=== PATIENT | female | born 1995 | race Caucasian/White ===

== ENCOUNTER 2021-10-05 21:16 | Emergency (ER) | payer OTHER ==
[~2021-10-05] VITALS: Ht 165.1 cm; Wt 69.0 kg
[2021-10-05] MEDS ORDERED: CYCLOBENZAPRINE 10MG TABLET PO ONE (22:15)
[2021-10-05] MEDS ORDERED: IBUPROFEN 800MG TABLET PO ONE (22:15)
[2021-10-05] MEDS ORDERED: HYDROCODONE/ACETAMINOPHEN 5/325MG TABLET PO ONE (23:45)
[2021-10-06] MEDS ORDERED: HYDR-4001 MT (00:36)
[2021-10-06] MEDS ORDERED: IBUP-2030 MT (00:36)
[2021-10-06 02:04] VITALS: BP 99/62
== END 2021-10-06 02:08 | disposition home or self-care (01) ==
LOC: ER 21:16
DX: S06.891A Other specified intracranial injury with loss of consciousness of 30 minutes or less, initial encounter (principal); S70.11XA Contusion of right thigh, initial encounter; V43.62XA Car passenger injured in collision with other type car in traffic accident, initial encounter; Y93.89 Activity, other specified; Y92.488 Other paved roadways as the place of occurrence of the external cause
CPT/HCPCS: 71045; 72170; 73552; 93005; 99284

== ENCOUNTER 2022-09-11 21:35 | Emergency (ER) | payer OTHER ==
[~2022-09-11] VITALS: Ht 165.1 cm; Wt 63.3 kg
[~2022-09-11 21:35] MED LIST: HYDR-4001 MT; IBUP-2030 MT
[2022-09-12 01:39] LABS: HEMATOCRIT. 38.1 % (36.0-48.0); MEAN CORPUSCULAR HEMOGLOBIN 21.6 pg (28.0-32.0); MEAN CORPUSCULAR VOLUME 68.6 fL (81.0-99.0); PLATELET 361 x1000/uL (130-400); RED BLOOD CELL COUNT 5.56 mill/uL (4.2-5.4); RED CELL DISTRIBUTION WIDTH 20.7 % (11.6-14.6)
[2022-09-12 02:04] LABS: PLATELET ESTIMATE NORMAL
[2022-09-12 02:52] VITALS: BP 107/57
[2022-09-12 03:23] LABS: CLARITY URINE CLEAR (CLEAR); COLOR URINE DARK YELLOW (YELLOW); KETONES URINE 1+ (NEGATIVE); LEUKOCYTE ESTERASE URINE NEGATIVE (NEGATIVE); NITRITE URINE NEGATIVE (NEGATIVE); OCCULT BLOOD URINE NEGATIVE (NEGATIVE); PH URINE 5.5 (4.5-8.0); PROTEIN URINE NEGATIVE (NEGATIVE)
== END 2022-09-12 04:06 | disposition home or self-care (01) ==
LOC: ER 21:35
DX: O26.891 Other specified pregnancy related conditions, first trimester (principal); R10.32 Left lower quadrant pain; Z3A.01 Less than 8 weeks gestation of pregnancy
CPT/HCPCS: 36415; 76801; 81003; 81025; 84702; 85025; 86850; 86900; 99284

== ENCOUNTER 2022-09-30 04:33 | Emergency (ER) | payer OTHER, MEDICAID ==
[~2022-09-30] VITALS: Ht 162.6 cm; Wt 61.8 kg
[2022-09-30 05:21] LABS: CLARITY URINE CLEAR (CLEAR); COLOR URINE DARK YELLOW (YELLOW); KETONES URINE TRACE (NEGATIVE); LEUKOCYTE ESTERASE URINE NEGATIVE (NEGATIVE); NITRITE URINE NEGATIVE (NEGATIVE); OCCULT BLOOD URINE 3+ (NEGATIVE); PH URINE 5.5 (4.5-8.0); PROTEIN URINE 1+ (NEGATIVE); SPECIFIC GRAVITY URINE 1.032 (1.005-1.030)
[2022-09-30 06:01] LABS: BASOPHILS % 0.4 % (0.0-2.0); EOSINOPHILS % 2.3 % (0.0-5.0); HEMATOCRIT. 37.4 % (36.0-48.0); LYMPHOCYTES % 26.3 % (20.0-50.0); MEAN CORPUSCULAR HEMOGLOBIN 22.8 pg (28.0-32.0); MEAN CORPUSCULAR VOLUME 70.6 fL (81.0-99.0); MONOCYTES % 5.9 % (2.0-8.0); NEUTROPHILS % 65.1 % (40.0-76.0); PLATELET 294 x1000/uL (130-400); RED BLOOD CELL COUNT 5.29 mill/uL (4.2-5.4); RED CELL DISTRIBUTION WIDTH 22.4 % (11.6-14.6)
[2022-09-30 06:06] LABS: CHLORIDE 105 mEq/L (98-107)
[2022-09-30 06:29] LABS: HCG SCREEN POSITIVE
[2022-09-30 06:31] LABS: B-HCG QUANTITATIVE 66261 mIU/mL (<3)
[2022-09-30 08:00] VITALS: BP 111/79
== END 2022-09-30 08:54 | disposition home or self-care (01) ==
LOC: ER 04:33
DX: O20.0 Threatened abortion (principal); Z3A.08 8 weeks gestation of pregnancy
CPT/HCPCS: 36415; 76801; 80053; 81003; 81025; 84702; 84703; 85025; 86850; 86900; 86901; 99284; Z7610

== ENCOUNTER 2022-10-07 05:28 | Emergency (ER) | payer OTHER, MEDICAID ==
[~2022-10-07] VITALS: Ht 162.6 cm; Wt 66.0 kg
[2022-10-07 06:05] VITALS: BP 113/73
[2022-10-07] MEDS ORDERED: ACETAMINOPHEN 325MG TABLET PO STA (06:26)
[2022-10-07 06:57] LABS: BASOPHILS % 0.4 % (0.0-2.0); EOSINOPHILS % 0.1 % (0.0-5.0); HEMOGLOBIN. 12.1 g/dL (12.0-16.0); LYMPHOCYTES % 7.9 % (20.0-50.0); MEAN CORPUSCULAR HEMOGLOBIN 22.6 pg (28.0-32.0); MEAN CORPUSCULAR VOLUME 70.9 fL (81.0-99.0); MONOCYTES % 3.7 % (2.0-8.0); NEUTROPHILS % 87.9 % (40.0-76.0); PLATELET 278 x1000/uL (130-400); RED BLOOD CELL COUNT 5.36 mill/uL (4.2-5.4); RED CELL DISTRIBUTION WIDTH 22.5 % (11.6-14.6)
[2022-10-07 07:07] LABS: CHLORIDE 107 mEq/L (98-107)
[2022-10-07 07:21] LABS: HCG SCREEN POSITIVE
[2022-10-07 07:42] LABS: PLATELET ESTIMATE NORMAL
== END 2022-10-07 09:27 | disposition left against medical advice (07) ==
LOC: ER 05:28
DX: O26.891 Other specified pregnancy related conditions, first trimester (principal); Y04.0XXA Assault by unarmed brawl or fight, initial encounter; Y93.89 Activity, other specified; Y92.89 Other specified places as the place of occurrence of the external cause; Y99.8 Other external cause status; Z3A.08 8 weeks gestation of pregnancy
CPT/HCPCS: 36415; 80053; 84703; 85025; 99283

== ENCOUNTER 2022-10-13 15:48 | Emergency (ER) | payer MEDICAID, OTHER ==
[~2022-10-13] VITALS: Ht 162.6 cm; Wt 63.6 kg
[2022-10-13 16:52] LABS: BASOPHILS % 0.6 % (0.0-2.0); EOSINOPHILS % 5.7 % (0.0-5.0); HEMATOCRIT. 35.9 % (36.0-48.0); HEMOGLOBIN. 11.4 g/dL (12.0-16.0); LYMPHOCYTES % 29.9 % (20.0-50.0); MEAN CORPUSCULAR VOLUME 72.5 fL (81.0-99.0); MEAN PLATELET VOLUME 8.2 fl (7.4-10.4); MONOCYTES % 6.9 % (2.0-8.0); NEUTROPHILS % 56.9 % (40.0-76.0); PLATELET 275 x1000/uL (130-400); RED BLOOD CELL COUNT 4.96 mill/uL (4.2-5.4); RED CELL DISTRIBUTION WIDTH 22.8 % (11.6-14.6)
[2022-10-13 16:55] LABS: CHLORIDE 106 mEq/L (98-107)
[2022-10-13 17:05] LABS: HCG SCREEN POSITIVE
[2022-10-13 17:07] LABS: CLARITY URINE CLEAR (CLEAR); COLOR URINE YELLOW (YELLOW); KETONES URINE TRACE (NEGATIVE); LEUKOCYTE ESTERASE URINE TRACE (NEGATIVE); NITRITE URINE NEGATIVE (NEGATIVE); OCCULT BLOOD URINE NEGATIVE (NEGATIVE); PROTEIN URINE NEGATIVE (NEGATIVE); SPECIFIC GRAVITY URINE 1.021 (1.005-1.030); UROBILINOGEN URINE 0.2 E.U./dL (0.2-1.0)
[2022-10-13 17:28] LABS: PLATELET ESTIMATE NORMAL
[2022-10-13 18:27] LABS: B-HCG QUANTITATIVE 70802 mIU/mL (<3)
[2022-10-13 21:07] VITALS: BP 118/76
== END 2022-10-13 21:20 | disposition home or self-care (01) ==
LOC: ER 15:48
DX: O02.1 Missed abortion (principal); Z3A.01 Less than 8 weeks gestation of pregnancy
CPT/HCPCS: 36415; 76801; 80053; 81003; 81025; 84702; 84703; 85025; 86850; 86900; 99284

== ENCOUNTER 2022-10-18 12:06 | Emergency (ER) | payer MEDICAID, OTHER ==
[~2022-10-18] VITALS: Ht 162.6 cm; Wt 64.0 kg
[2022-10-18 12:44] LABS: BASOPHILS % 0.3 % (0.0-2.0); EOSINOPHILS % 3.4 % (0.0-5.0); HEMATOCRIT. 37.1 % (36.0-48.0); HEMOGLOBIN. 12.2 g/dL (12.0-16.0); MEAN CORPUSCULAR HEMOGLOBIN 23.7 pg (28.0-32.0); MEAN PLATELET VOLUME 7.7 fl (7.4-10.4); MONOCYTES % 6.3 % (2.0-8.0); PLATELET 291 x1000/uL (130-400); RED BLOOD CELL COUNT 5.16 mill/uL (4.2-5.4); RED CELL DISTRIBUTION WIDTH 22.8 % (11.6-14.6)
[2022-10-18 12:52] LABS: CHLORIDE 109 mEq/L (98-107)
[2022-10-18] MEDS ORDERED: ACETAMINOPHEN 325MG TABLET PO ONE (13:15)
[2022-10-18 13:28] LABS: PLATELET ESTIMATE NORMAL
[2022-10-18] MEDS ORDERED: FAMOTIDINE 20MG/2ML VIAL IV ONE (13:30)
[2022-10-18] MEDS ORDERED: SODIUM CHLORIDE 0.9% 1,000 ML IV ONE (13:30)
[2022-10-18] MEDS ORDERED: ONDANSETRON HCL 4MG/2ML INJ IV ONE (13:30)
[2022-10-18] MEDS ORDERED: IBUPROFEN 600MG TABLET PO NR (15:00)
[2022-10-18 15:39] LABS: CLARITY URINE CLEAR (CLEAR); COLOR URINE YELLOW (YELLOW); KETONES URINE NEGATIVE (NEGATIVE); LEUKOCYTE ESTERASE URINE NEGATIVE (NEGATIVE); NITRITE URINE NEGATIVE (NEGATIVE); OCCULT BLOOD URINE NEGATIVE (NEGATIVE); PROTEIN URINE NEGATIVE (NEGATIVE); SPECIFIC GRAVITY URINE 1.018 (1.005-1.030); UROBILINOGEN URINE 0.2 E.U./dL (0.2-1.0)
[2022-10-18] MEDS ORDERED: IBUP-2028 MT (15:45)
[2022-10-18 16:01] VITALS: BP 122/60
== END 2022-10-18 16:05 | disposition home or self-care (01) ==
LOC: ER 12:13
DX: O36.4XX0 Maternal care for intrauterine death, not applicable or unspecified (principal); Z3A.08 8 weeks gestation of pregnancy; O99.511 Diseases of the respiratory system complicating pregnancy, first trimester
CPT/HCPCS: 36415; 76801; 76817; 80053; 81003; 81025; 84702; 85025; 86850; 86900; 86901; 96361; 96374; 96375; 99285; J2405; J3490; J7030; Z7610

== ENCOUNTER 2022-11-10 01:46 | Emergency (ER) | payer MEDICAID ==
[~2022-11-10] VITALS: Ht 162.6 cm; Wt 61.0 kg
[~2022-11-10 01:46] MED LIST changes: +IBUP-2028 MT
[2022-11-10 02:05] VITALS: BP 113/70
[2022-11-10 03:22] LABS: HEMOGLOBIN 12.9 g/dL (12.0-16.0); MEAN CORPUSCULAR HEMOGLOBIN 24.1 pg (28.0-32.0); MEAN CORPUSCULAR VOLUME 72.8 fL (81.0-99.0); PLATELET 304 x1000/uL (130-400); RED BLOOD CELL COUNT 5.36 mill/uL (4.2-5.4); RED CELL DISTRIBUTION WIDTH 19.9 % (11.6-14.6)
[2022-11-10 03:27] LABS: CHLORIDE 106 mEq/L (98-107)
== END 2022-11-10 10:58 | disposition left against medical advice (07) ==
LOC: ER 01:46
DX: Z53.21 Procedure and treatment not carried out due to patient leaving prior to being seen by health care provider (principal)
CPT/HCPCS: 36415; 80053; 85027; 86850; 86900; 99281

== ENCOUNTER 2023-01-16 09:29 | Emergency (ER) | payer MEDICAID ==
[~2023-01-16] VITALS: Ht 162.6 cm; Wt 63.0 kg
[2023-01-16 09:53] VITALS: BP 143/70; PULSE 100; RESP 20; TEMP 98.4; O2SAT 100
[2023-01-16 10:07] LABS: BASOPHILS % 0.4 % (0.0-2.0); DIFFERENTIAL COMMENT 0; EOSINOPHILS % 4.2 % (0.0-5.0); HEMATOCRIT. 39.3 % (36.0-48.0); HEMOGLOBIN. 12.1 g/dL (12.0-16.0); LYMPHOCYTES % 32.9 % (20.0-50.0); MEAN CORPUSCULAR HEMOGLOBIN 24.7 pg (28.0-32.0); MEAN CORPUSCULAR HGB CONC 30.9 g/dL (31.0-37.0); MEAN CORPUSCULAR VOLUME 80.1 fL (81.0-99.0); MEAN PLATELET VOLUME 8.1 fl (7.4-10.4); MONOCYTES % 5.3 % (2.0-8.0); NEUTROPHILS % 57.2 % (40.0-76.0); PLATELET 321 x1000/uL (130-400); WHITE BLOOD COUNT 8.1 x1000/uL (4.5-11.0)
[2023-01-16 10:10] LABS: CLARITY URINE CLEAR (CLEAR); COLOR URINE YELLOW (YELLOW); GLUCOSE URINE NEGATIVE (NEGATIVE); KETONES URINE NEGATIVE (NEGATIVE); LEUKOCYTE ESTERASE URINE 3+ (NEGATIVE); NITRITE URINE NEGATIVE (NEGATIVE); OCCULT BLOOD URINE NEGATIVE (NEGATIVE); PROTEIN URINE NEGATIVE (NEGATIVE); SPECIFIC GRAVITY URINE 1.009 (1.005-1.030); UROBILINOGEN URINE 0.2 E.U./dL (0.2-1.0)
[2023-01-16 10:15] LABS: CHLORIDE 107 mEq/L (98-107); INDEX HEMOLYSI 1 (1-3); INDEX ICTERIC 1 (1-4); INDEX LIPEMIC 1 (1-3); POTASSIUM 4.2 mEq/L (3.5-5.1); SODIUM 137 mEq/L (136-145)
[2023-01-16 10:22] LABS: ALANINE AMINOTRANSFERASE 24 IU/L (13-61); ALBUMIN 3.3 g/dL (3.4-5.0); ASPARTATE AMINOTRANSFERASE 18 IU/L (15-37); BILIRUBIN TOTAL 0.2 mg/dL (0.1-1.0); CALCIUM 8.6 mg/dL (8.5-10.1); CARBON DIOXIDE 28 mEq/L (21-32); CREATININE 0.8 mg/dL (0.6-1.3); GLUCOSE 104 mg/dL (70-105); PROTEIN TOTAL 7.3 g/dL (6.0-8.3); UREA NITROGEN BLOOD 14 mg/dL (7-21)
[2023-01-16 10:49] LABS: HCG SCREEN NEGATIVE
[2023-01-16 10:58] LABS: BACTERIA URINE 1+; SQUAMOUS EPITHELIAL CELL URINE 2+ /lpf (RARE/1+)
[2023-01-16 10:59] LABS: RBC URINE 0-2 /hpf (0-2); WBC URINE 0-2 /hpf (0-2)
[2023-01-16] MEDS ORDERED: IBUPROFEN 600MG TABLET PO STA (11:52)
[2023-01-16] MEDS ORDERED: ONDANSETRON 4MG ODT PO STA (11:52)
[2023-01-16] MEDS ORDERED: DICYCLOMINE 10 MG/5 ML ORAL SYR PO STA (11:52)
[2023-01-16] MEDS ORDERED: MAGNESIUM/ALUMINUM HYDROXIDE/SIMETHICONE 30ML UDC PO STA (11:52)
[2023-01-16] MEDS ORDERED: DICYCLOMINE HCL 10MG CAPSULE PO SCH (12:15)
[2023-01-16] MEDS ORDERED: IBUP-2029 MT (14:03)
== END 2023-01-16 14:52 | disposition home or self-care (01) ==
LOC: ER 09:53
DX: K80.50 Calculus of bile duct without cholangitis or cholecystitis without obstruction (principal); J45.909 Unspecified asthma, uncomplicated
CPT/HCPCS: 36415; 76700; 80053; 81003; 81025; 84703; 85025; 99284

== ENCOUNTER 2023-11-07 19:00 | Emergency (ER) | payer SELFPAY ==
[~2023-11-07] VITALS: Ht 160 cm; Wt 70.0 kg
[~2023-11-07 19:00] MED LIST changes: +IBUP-2029 MT
[2023-11-07 19:02] VITALS: BP 127/69; RESP 16; O2SAT 100
[2023-11-07 19:04] VITALS: PULSE 136
[2023-11-07 19:47] LABS: BASOPHILS % 0.5 % (0.0-2.0); EOSINOPHILS % 3.8 % (0.0-5.0); HEMATOCRIT. 40.7 % (36.0-48.0); HEMOGLOBIN. 13.4 g/dL (12.0-16.0); LYMPHOCYTES % 16.6 % (20.0-50.0); MEAN CORPUSCULAR HEMOGLOBIN 26.6 pg (28.0-32.0); MEAN CORPUSCULAR HGB CONC 33.1 g/dL (31.0-37.0); MEAN CORPUSCULAR VOLUME 80.3 fL (81.0-99.0); MEAN PLATELET VOLUME 7.6 fl (7.4-10.4); MONOCYTES % 12.9 % (2.0-8.0); NEUTROPHILS % 66.2 % (40.0-76.0); PLATELET 286 x1000/uL (130-400); RED BLOOD CELL COUNT 5.07 mill/uL (4.2-5.4); RED CELL DISTRIBUTION WIDTH 15.4 % (11.6-14.6); WHITE BLOOD COUNT 4.9 x1000/uL (4.5-11.0)
[2023-11-07 19:59] LABS: CHLORIDE 104 mEq/L (98-107); POTASSIUM 3.9 mEq/L (3.5-5.1); SODIUM 134 mEq/L (136-145)
[2023-11-07 20:00] LABS: CARBON DIOXIDE 24 mEq/L (21-32)
[2023-11-07 20:01] LABS: CALCIUM 9.1 mg/dL (8.7-10.4)
[2023-11-07 20:05] LABS: CREATININE 0.7 mg/dL (0.6-1.0); GLUCOSE 88 mg/dL (70-105)
[2023-11-07 20:06] LABS: UREA NITROGEN BLOOD 7 mg/dL (9-23)
[2023-11-07 20:18] LABS: B-HCG QUANTITATIVE 93726 mIU/mL (<3)
[2023-11-07 21:47] LABS: ALANINE AMINOTRANSFERASE 18 IU/L (10-49); ALBUMIN 4.2 g/dL (3.2-4.8); ASPARTATE AMINOTRANSFERASE 25 IU/L (<34); BILIRUBIN DIRECT 0.2 mg/dL (<=3.0); BILIRUBIN TOTAL 0.6 mg/dL (0.1-1.0); PROTEIN TOTAL 7.3 g/dL (6.0-8.3)
[2023-11-07] MEDS: ACETAMINOPHEN 500MG TABLET PO NR (22:45)
[2023-11-07] MEDS ORDERED: DIPHENHYDRAMINE 50MG/ML VIAL IM NR (22:45)
[2023-11-07] MEDS ORDERED: METOCLOPRAMIDE HCL 10MG/2ML VIAL IM NR (22:45)
[2023-11-07 23:05] VITALS: TEMP 98.7
[2023-11-07] MEDS: ACETAMINOPHEN 500MG TABLET PO ONE (23:05)
[2023-11-07] MEDS: DIPHENHYDRAMINE 50MG/ML VIAL IM ONE (23:05)
[2023-11-07] MEDS: METOCLOPRAMIDE HCL 10MG/2ML VIAL IM ONE (23:05)
== END 2023-11-08 00:10 | disposition home or self-care (01) ==
LOC: ER 19:00
DX: O99.351 Diseases of the nervous system complicating pregnancy, first trimester (principal); G43.909 Migraine, unspecified, not intractable, without status migrainosus; J45.909 Unspecified asthma, uncomplicated; Z3A.10 10 weeks gestation of pregnancy
CPT/HCPCS: 99285; 76801; 80076; 80048; 84702; 85025; 36415; 96372; J1200; J2765

== ENCOUNTER 2024-02-08 09:20 | Emergency (ER) | payer MEDICAID ==
[~2024-02-08] VITALS: Ht 160 cm; Wt 68.0 kg
[2024-02-08 09:38] VITALS: O2SAT 98
[2024-02-08 09:46] LABS: BASOPHILS % 0.4 % (0.0-2.0); EOSINOPHILS % 3.3 % (0.0-5.0); HEMATOCRIT. 31.8 % (36.0-48.0); HEMOGLOBIN. 10.5 g/dL (12.0-16.0); LYMPHOCYTES % 31.1 % (20.0-50.0); MEAN CORPUSCULAR HEMOGLOBIN 26.8 pg (28.0-32.0); MEAN CORPUSCULAR HGB CONC 33.1 g/dL (31.0-37.0); MEAN PLATELET VOLUME 8.2 fl (7.4-10.4); MONOCYTES % 5.8 % (2.0-8.0); NEUTROPHILS % 59.4 % (40.0-76.0); PLATELET 283 x1000/uL (130-400); RED BLOOD CELL COUNT 3.93 mill/uL (4.2-5.4); RED CELL DISTRIBUTION WIDTH 15.1 % (11.6-14.6); WHITE BLOOD COUNT 8.7 x1000/uL (4.5-11.0)
[2024-02-08] MEDS: SODIUM CHLORIDE 0.9% 1,000 ML IV ONE (09:53)
[2024-02-08] MEDS: ACETAMINOPHEN 325MG TABLET PO ONE (09:57)
[2024-02-08 10:00] LABS: CHLORIDE 106 mEq/L (98-107); SODIUM 136 mEq/L (136-145)
[2024-02-08 10:01] LABS: CALCIUM 8.8 mg/dL (8.7-10.4); CARBON DIOXIDE 21 mEq/L (21-32)
[2024-02-08 10:02] LABS: PARTIAL THROMBOPLASTIN TIME 27.3 sec (23.4-31.0); PROTHROMBIN TIME 10.9 sec (9.6-11.0)
[2024-02-08 10:06] LABS: CREATININE 0.6 mg/dL (0.6-1.0); GLUCOSE 94 mg/dL (70-105); UREA NITROGEN BLOOD 9 mg/dL (9-23)
[2024-02-08 10:08] LABS: ALANINE AMINOTRANSFERASE 9 IU/L (10-49); ALBUMIN 3.6 g/dL (3.2-4.8); ASPARTATE AMINOTRANSFERASE 28 IU/L (<34); BILIRUBIN TOTAL 0.3 mg/dL (0.1-1.0); PROTEIN TOTAL 6.4 g/dL (6.0-8.3)
[2024-02-08 11:35] LABS: CLARITY URINE CLOUDY (CLEAR); COLOR URINE YELLOW (YELLOW); GLUCOSE URINE NEGATIVE (NEGATIVE); KETONES URINE NEGATIVE (NEGATIVE); LEUKOCYTE ESTERASE URINE 3+ (NEGATIVE); NITRITE URINE NEGATIVE (NEGATIVE); OCCULT BLOOD URINE NEGATIVE (NEGATIVE); PH URINE 6.5 (4.5-8.0); PROTEIN URINE NEGATIVE (NEGATIVE); SPECIFIC GRAVITY URINE 1.008 (1.005-1.030); UROBILINOGEN URINE 0.2 E.U./dL (0.2-1.0)
[2024-02-08 11:49] LABS: *AMPHETAMINES SCREEN URINE NEGATIVE (NEGATIVE); *BARBITURATES SCREEN URINE NEGATIVE (NEGATIVE); *BENZODIAZEPINES SCREEN URINE NEGATIVE (NEGATIVE); *COCAINE SCREEN URINE NEGATIVE (NEGATIVE)
[2024-02-08 11:50] LABS: CANNABINOID URINE SCREEN NEGATIVE (NEGATIVE); ECSTASY MDMA SCREEN URINE NEGATIVE (NEGATIVE); METHADONE URINE SCREEN NEGATIVE (NEGATIVE); OPIATES URINE SCREEN NEGATIVE (NEGATIVE); PHENCYCLIDINE URINE SCREEN NEGATIVE (NEGATIVE)
[2024-02-08 11:56] LABS: SQUAMOUS EPITHELIAL CELL URINE 1+ /lpf (RARE/1+)
[2024-02-08 11:58] LABS: BACTERIA URINE 1+
[2024-02-08 11:59] LABS: TRICHOMONAS URINE FEW
[2024-02-08 12:00] LABS: WBC URINE 25-50 /hpf (0-2)
[2024-02-08 12:01] LABS: RBC URINE 0-2 /hpf (0-2)
[2024-02-08] MEDS: CEFTRIAXONE 1GM/50ML 50 ML IV ONE (13:00)
[2024-02-08] MEDS: AZITHROMYCIN 500 MG TABLET PO SCH (13:09)
[2024-02-08] MEDS: METRONIDAZOLE 500 MG PREMIX 100 ML IV ONE (13:09)
[2024-02-08] MEDS ORDERED: CEPH500T MT (13:56)
[2024-02-08] MEDS ORDERED: METR-167 MT (13:56)
[2024-02-08] MEDS: ONDANSETRON HCL 4MG/2ML INJ IV ONE (15:00)
[2024-02-08] MEDS: FAMOTIDINE 20MG/2ML VIAL IV ONE (15:01)
[2024-02-08] MEDS: MAGNESIUM/ALUMINUM HYDROXIDE/SIMETHICONE 30ML UDC PO ONE (15:01)
[2024-02-08 15:05] VITALS: BP 109/69; PULSE 80; RESP 18; TEMP 37.00296; O2SAT 99
== END 2024-02-08 15:16 | disposition home or self-care (01) ==
LOC: ER 09:20
DX: O46.8X2 Other antepartum hemorrhage, second trimester (principal); O23.32 Infections of other parts of urinary tract in pregnancy, second trimester; A59.9 Trichomoniasis, unspecified; Z3A.23 23 weeks gestation of pregnancy; Z79.899 Other long term (current) drug therapy
CPT/HCPCS: 99285; 96365; 96361; 76805; 96375; 96366; 80053; 80305; 85025; 85610; 85730; 86850; 86900; 86901; 87086; 36415; 96368; 81003; J0696; J3490 ×2; J2405; J7030

== ENCOUNTER 2024-05-18 07:34 | Emergency (ER) | payer MEDICAID ==
[~2024-05-18 07:34] MED LIST changes: +CEPH500T MT; +METR-167 MT
[2024-05-18 07:57] LABS: HEMATOCRIT. 35.4 % (36.0-48.0); HEMOGLOBIN. 11.2 g/dL (12.0-16.0); MEAN CORPUSCULAR HEMOGLOBIN 23.7 pg (28.0-32.0); MEAN CORPUSCULAR HGB CONC 31.7 g/dL (31.0-37.0); MEAN CORPUSCULAR VOLUME 74.7 fL (81.0-99.0); MEAN PLATELET VOLUME 8.4 fl (7.4-10.4); PLATELET 252 x1000/uL (130-400); RED BLOOD CELL COUNT 4.75 mill/uL (4.2-5.4); RED CELL DISTRIBUTION WIDTH 15.7 % (11.6-14.6); WHITE BLOOD COUNT 9.5 x1000/uL (4.5-11.0)
[2024-05-18 07:58] LABS: DIFFERENTIAL COMMENT 1
[2024-05-18 08:13] LABS: CHLORIDE 103 mEq/L (98-107); POTASSIUM 3.6 mEq/L (3.5-5.1); SODIUM 134 mEq/L (136-145)
[2024-05-18 08:14] LABS: CARBON DIOXIDE 20 mEq/L (21-32)
[2024-05-18 08:15] LABS: CALCIUM 9.1 mg/dL (8.7-10.4)
[2024-05-18 08:19] LABS: CREATININE 0.6 mg/dL (0.6-1.0); GLUCOSE 125 mg/dL (70-105); UREA NITROGEN BLOOD 5 mg/dL (9-23)
[2024-05-18 08:32] LABS: B-HCG QUANTITATIVE 3141 mIU/mL (<3)
[2024-05-18 08:57] VITALS: BP 103/57; PULSE 130; RESP 18; TEMP 36.89184; O2SAT 99
[2024-05-18 08:57] LABS: MICROCYTOSIS 1+; NUCLEATED RED BLOOD CELLS 1 /100 WBC; PLATELET ESTIMATE NORMAL
== END 2024-05-18 09:07 | disposition short-term general hospital (02) ==
LOC: ER 07:34
DX: O62.9 Abnormality of forces of labor, unspecified (principal); Z3A.38 38 weeks gestation of pregnancy
CPT/HCPCS: 36415; 76805; 80048; 84702; 85025; 86850; 86900; 99285